=== PATIENT | female | born 1985 | race African-American/Black ===

== ENCOUNTER 2021-01-05 19:04 | Emergency (ER) | payer BC ==
[2021-01-05 19:15] VITALS: BP 132/72; PULSE 86; TEMP 97.9; BMI 22.6
== END 2021-01-05 22:40 | disposition home or self-care (01) ==
LOC: JER 19:04
DX: O26.851 Spotting complicating pregnancy, first trimester (principal); Z3A.10 10 weeks gestation of pregnancy
CPT/HCPCS: 36415; 76801-TC; 84702; 99284-25